=== PATIENT | male | born 1995 | race Caucasian/White ===

== ENCOUNTER 2024-02-25 19:51 | Emergency (ER) | payer BC, SELFPAY ==
[2024-02-25 19:58] VITALS: BP 134/90; PULSE 86; RESP 16; TEMP 36.8; O2SAT 99; BMI 23.7
--- NOTE | 2024-02-25 21:39 | XRR_ITS ---
PROCEDURE INFORMATION: Exam: XR Left Knee Exam date and time: 02/25/2024 9:55 PM Age: 28 years old Clinical indication: Injury or trauma; Other: Lle hit by a gun safe; Blunt trauma; Knee; Left TECHNIQUE: Imaging protocol: Radiologic exam of the left knee. Views: 3 views. COMPARISON: No relevant prior studies available. FINDINGS: Bones/joints: No acute fractures or subluxations. Soft tissues: Normal. XR/XR knee LT 3V* [id number] IMPRESSION: No acute fractures or subluxations.
--- NOTE | 2024-02-25 21:39 | XRR_ITS ---
PROCEDURE INFORMATION: Exam: XR Left Tibia and Fibula Exam date and time: 02/25/2024 9:57 PM Age: 28 years old Clinical indication: Injury or trauma; Other: Lle hit by a gun safe; Blunt trauma; Lower leg; Left TECHNIQUE: Imaging protocol: Radiologic exam of the left tibia and fibula. Views: 2 views. COMPARISON: CR (LOW EXM, ) 02/25/2024 9:55 PM FINDINGS: Bones/joints: No acute fractures or subluxations. Soft tissues: Soft tissue swelling overlying the lateral aspect of the distal lower extremity. No radiopaque foreign bodies. XR/XR tibia fibula LT 2V [id number] IMPRESSION: No acute fractures or subluxations. Soft tissue swelling overlying the lateral aspect of the distal lower extremity. No radiopaque foreign bodies.
--- NOTE | 2024-02-25 22:31 | XRR_ITS ---
PROCEDURE INFORMATION: Exam: XR Left Ankle Exam date and time: 02/25/2024 10:35 PM Age: 28 years old Clinical indication: Pain; Ankle; Left; Additional info: Injury TECHNIQUE: Imaging protocol: Radiologic exam of the left ankle. Views: 3 or more views. COMPARISON: CR (LOW EXM, ) 02/25/2024 9:57 PM FINDINGS: Bones/joints: No acute fractures or subluxations. Soft tissues: Mild edema with subcutaneous emphysema overlying the lateral aspect of the distal lower extremity. XR/XR ankle LT min 3V* [id number] IMPRESSION: No acute fractures or subluxations. Mild edema with subcutaneous emphysema overlying the lateral aspect of the distal lower extremity.
--- NOTE | 2024-02-25 22:31 | ED_ITS ---
HPI - Extremity Problem General: Chief complaint: Extremity Injury, Lower Stated complaint: Left leg injury Time Seen by Provider: 02/25/24 21:59 Source: patient Mode of arrival: ambulatory Limitations: no limitations History of Present Illness: 28-year-old male states that he was help ing move a gun safe states he read dragon and got away and and fell and struck him in the left lower leg and hit his leg against a stair does have abrasion to the outer portion of his left lower ankle he states he has pain from his left knee down to his ankle An hour ago he rates his pain a 6 out of 10 he states he has been able to bear weight he denies any other injuries his last tetanus was 2 years ago Associated symptoms: Deny chest pain, fever(s) or rash Review of Systems Const: Denies: fever(s), chills, body aches or change in appetite ENMT: Denies: throat pain or dental pain Card: Denies: chest pain Resp: Denies: dyspnea GI: Denies: abdominal pain, nausea, vomiting or diarrhea Musc: Reports: extremity pain; Denies: neck pain or back pain Skin/Breast: Denies: rash Neuro: Denies: headache(s) Physical Exam Const: COMMON NORMALS: no acute distress, patient oriented x3 and healthy appearing HENMT: COMMON NORMALS: normocephalic and atraumatic HEAD & SCALP: normocephalic and atraumatic Neck/C-Spine: COMMON NORMALS: full ROM and supple Chest: COMMONS NORMALS: normal inspection of the chest Resp: COMMON NORMALS: normal respiratory effort Cardio: COMMON NORMALS: regular rate, regular rhythm and No murmurs present (Cardio) RATE: regular rate RHYTHM: regular rhythm Extremity: OTHER: Tenderness noted to the left ankle lower leg with slight abrasion to left lateral ankle no obvious deformities noted no tenderness to the foot Neuro: COMMON NORMALS: patient oriented x3, moves all extremities and no focal motor deficits Psych: COMMON NORMALS: mental status grossly normal, Normal thought process present and cooperative THOUGHT PROCESS: Normal thought process present Skin: COMMON NORMALS: no rashes or lesions noted and no wounds GENERAL SKIN EXAM: no rashes or lesions noted Course 2 Vital Signs: Vital signs: Vital Signs Temperature 98.2 F 02/25/24 19:58 Pulse Rate 69 02/25/24 23:17 Respiratory Rate 16 02/25/24 23:17 Blood Pressure 120/70 02/25/24 23:17 Pulse Oximetry 69 L 02/25/24 23:17 Oxygen Delivery Me thod Room Air 02/25/24 19:58 MDM - Extremity (Nontraumatic) Medical Decision Making Patient presents here with an ankle contusion imaging here is all normal he is able to ambulate he stable for discharge follow-up PCP return if worsening. Medical Records I reviewed the patient's medical records. Lab Data Radiology Impressions Knee X-Ray 02/25/24 21:39 IMPRESSION: No acute fractures or subluxations. Tibia/Fibula X-Ray 02/25/24 21:39 IMPRESSION: No acute fractures or subluxations. Soft tissue swelling overlying the lateral aspect of the distal lower extremity. No radiopaque foreign bodies. Ankle X-Ray 02/25/24 22:31 IMPRESSION: No acute fractures or subluxations. Mild edema with subcutaneous emphysema overlying the lateral aspect of the distal lower extremity. All radiology interpretation(s) finalized by discharge Discharge Plan Discharge Patient Disposition: Home Clinical Impression: Contusion of ankle, left Qualifiers: Encounter type: initial encounter Qualified Code(s): S90.02XA - Contusion of left ankle, initial encounter Condition: Stable Discharge Orders: Discharge ED (Routine); Ordered 02/25/24 Ordered By: Milton Washington Referrals: Bernard Velasquez FNP [Primary Care Provider] - Discharge Diet: Advance as tolerated Discharge Activity: Resume usual activity Patient Instructions: Contusion in Adults (ED) Coding Level of Care Code ED Database Administration Manager for Katia Black
[2024-02-25] MEDS: HYDROcodone-acetaminophen 5-325 mg Tablet 1 TAB PO (22:36)
[2024-02-25 23:17] VITALS: BP 120/70; PULSE 69; RESP 16; O2SAT 69
== END 2024-02-25 23:18 | disposition home or self-care (01) ==
PROVIDERS: Emergency Provider Emergency Medicine; PCP Nurse Practitioner Family
DX: S90.02XA Contusion of left ankle, initial encounter (principal); W20.8XXA Other cause of strike by thrown, projected or falling object, initial encounter
CPT/HCPCS: 73562; 73590; 73610; 99284